=== PATIENT | female | born 1950 | race Caucasian/White ===

== ENCOUNTER → 2018-05-16 | Outpatient (CLI) | payer MEDICARE ==
[~2018-05-16] MED LIST: ALBU90OI INH; AMLO5 PO; ATOR40TA PO; BENA20 PO; CARV25 PO; FLUSAL5005 INH; HYDCHL25 PO; HYDRA50 PO; Hydrocodone-Ap1 EA23 PO; LOPE2C PO; PRED10 PO; Prednisone20 MG PO
== END | disposition home or self-care (01) ==
LOC: LAB SHORT 06:00 → LAB 06:00 → LAB FUT 05-14 13:50 → EDSTATUS 05-14 13:50
PROVIDERS: Internal Medicine
DX: R79.0 Abnormal level of blood mineral (principal)
CPT/HCPCS: 81050

== ENCOUNTER → 2021-09-09 | Outpatient (CLI) | payer MEDICARE ==
[~2021-09-09] MED LIST changes: +DEXA4 PO
[2021-09-09 09:51] LABS: BASOPHILS ABSOLUTE AUTO 0.05 K/mm3 (0.00-0.23); BASOPHILS PERCENT AUTO 1 % (0-2); EOSINOPHILS ABSOLUTE AUTO 0.01 K/mm3 (0.00-0.68); EOSINOPHILS PERCENT AUTO 0 % (0-6); Hematocrit 46.1 % (33.0-51.0); IMMATURE GRAN ABSOLUTE AUTO 0.02 K/mm3 (0.00-0.10); IMMATURE GRAN PERCENT AUTO 0 % (0-1); LYMPHOCYTES ABSOLUTE AUTO 0.96 K/mm3 (0.84-5.20); LYMPHOCYTES PERCENT AUTO 18 % (21-46); MONOCYTES ABSOLUTE AUTO 0.68 K/mm3 (0.16-1.47); MONOCYTES PERCENT AUTO 13 % (4-13); Mean Corpuscular HGB 31.8 pg (26.0-34.0); Mean Corpuscular HGB Conc 34.7 g/dL (31.5-36.5); Mean Corpuscular Volume 92 fL (80-100); Mean Platelet Volume 9.7 fL (9.1-12.4); NEUTROPHILS PERCENT AUTO 68 % (41-73); Platelet Count 212 K/mm3 (150-400); RDW Coefficient Variation 12.5 % (11.7-14.2); RDW Standard Deviation 42.4 fL (35.1-46.3); Red Blood Cell Count 5.03 M/mm3 (3.80-5.20); White Blood Cell Count 5.32 K/mm3 (4.00-11.30)
[2021-09-09 09:55] LABS: Bun/Creatinine Ratio 17.2 (12.0-20.0); Creatinine, Blood 1.45 mg/dL (0.40-1.00); Potassium, Blood 4.6 mmol/L (3.5-5.5)
== END | disposition home or self-care (01) ==
LOC: LAB SHORT 09:41
PROVIDERS: Physician Assistant Surgical
DX: U07.1 COVID-19 (principal)
CPT/HCPCS: 80048; 85025